=== PATIENT | female | born 1985 | race Caucasian/White ===

== ENCOUNTER 2018-05-03 04:37 | Inpatient (IN) ==
[2018-05-03 05:25] LABS: Basophils % 0.5 %; Bilirubin,Urine Negative (Negative); Blood,Urine Large (Negative); Clarity,Urine Turbid (Clear); Color,Urine Yellow (Yellow); Eosinophils # 0.3 K/mcL (0.0-0.6); Eosinophils % 3.6 %; Glucose,Urine (UA) Normal (Normal); Hematocrit 46.4 % (35.3-44.9); Hemoglobin 15.3 g/dL (11.5-15.4); Immature Granulocytes % 0.4 % (0-4); Ketones,Urine Negative (Negative); Leukocyte Esterase,Urine Trace (Negative); Lymphocytes # 2.9 K/mcL (0.6-4.6); Lymphocytes % 34.4 %; Mean Corpuscular Hemoglobin 29.5 pg (28.0-33.3); Mean Corpuscular Volume 89.6 fL (83.0-100.0); Mean Platelet Volume 10.1 fL (9.4-12.4); Monocytes # 0.6 K/mcL (0.0-1.3); Monocytes % 7.1 %; Neutrophils # 4.6 K/mcL (1.6-8.9); Nitrite,Urine Negative (Negative); Platelet Count 297 K/mcL (140-400); Protein,Urine Trace mg/dL (Neg-Trace); Red Blood Count 5.18 M/mcL (3.82-4.97); Red Cell Distribution Width 14.6 % (11.5-14.5); Specific Gravity,Urine 1.015 (1.010-1.025); Urobilinogen,Urine Normal (Normal)
[2018-05-03 05:28] LABS: Bacteria,Urine None Seen per hpf (None-Few); Hyaline Casts,Urine None Seen per lpf (None-Few); Squamous Epithelial Cell,Urine Many per lpf (None-Few)
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
[2018-05-03 05:35] LABS: Amorphous Sediment,Urine Moderate (Few)
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
[2018-05-03 05:37] LABS: RBC,Urine 15-30 per hpf (0-3)
[2018-05-03 05:46] LABS: Acetaminophen < 10 mcg/mL (10-20); Amphetamine Screen,Urine Negative ng/mL (Cutoff=1000); BUN/Creatinine Ratio 12 (6-26); Barbiturate Screen,Urine Negative ng/mL (Cutoff=200); Benzodiazepines Screen,Urine Negative ng/mL (Cutoff=200); Blood Urea Nitrogen 10 mg/dL (6-20); Calcium 9.5 mg/dL (8.6-10.3); Cannabinoid Screen,Urine Negative ng/mL (Cutoff = 50); Carbon Dioxide 25 mEq/L (23-29); Chloride 109 mEq/L (98-107); Cocaine Screen,Urine Negative ng/mL (Cutoff= 300); Ethanol < 10 mg/dL (Less than 10); Glucose 72 mg/dL (70-105); Opiate Screen,Urine Negative ng/mL (Cutoff=300); Osmolality,Calculated 286 (280-300); Phencyclidine Screen,Urine Negative ng/mL (Cutoff=25); Potassium 3.7 mEq/L (3.5-5.1); Salicylate < 2.5 mg/dL (15.0-30.0); Sodium 139 mEq/L (136-145); eGFR For Non-African Americans > 60 (> 60)
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
[2018-05-03] MEDS ORDERED: *HR* LORazepam 1 MG TABLET PO PRN (13:32)
[2018-05-03] MEDS ORDERED: Mag Hydrox/Al Hydrox/Simeth 30 ML UDC PO PRN (13:32)
[2018-05-03] MEDS ORDERED: MOM Conc 10 ML UD.LIQ PO PRN (13:32)
[2018-05-03] MEDS ORDERED: *HR* LORazepam 2 MG/ML VIAL IM PRN (13:32)
[2018-05-03] MEDS ORDERED: Haloperidol Lactate 5 MG/ML VIAL IM PRN (13:32)
[2018-05-03] MEDS: Nicotine 14 MG PATCH.TD24 TD SCH (16:46)
--- NOTE | 2018-05-03 16:50 | Psychiatry History & Physical ---
Date of Encounter: 05/03/18 Time of Encounter: 16:45 History of Present Illness Patient Stated Chief Complaint: I am suicidal, empty Medicare Admission Attestation: For traditional Medicare patients the provided hospital inpatient services are reasonable and necessary and in the case of services not specified as inpatient-only under 42 CFR 419.22 (n), that they are appropriately provided as inpatient services in accordance 42 CFR 412.3. For Critical Access Hospital the patient may reasonably be expected to be discharged or transferred to a hospital within 96 hours after admission to the Critical Access Hospital. Admitted From: Emergency Dept Plans for Post Hospital Care: Home History of Present Illness: Ms. Schaefer is a 33 year old female Chief complaint I feel empty. I have seizures History of present illness. The patient has been followed by Dr. Rasmussen. She presented today with a suicidal plan to cut or burn herself. The patient has shown me some of the cuts and khalil. The patient has reported depressive symptoms and low mood diminished interest guilt low energy poor concentration but the current stressor is working excessively. Suicidal ideation has included a variety of means to kill herself. But she says that she is not planning to kill herself on this unit. The patient was seen one week ago by Dr. Rasmussen but did not reveal how bad her depression and gotten. She is from her and he is currently in a local rehabilitation setting. The patient did not want to start any medicines she notes that she has eating disorder. The patient I discussed some of the criteria for major depression single episode as well as other disorders. Past Med Surg Social Fam HX - Past Medical History Source: patient Medical history: seizures - Past Psychiatric History Psychiatric history: Reports: panic disorder Family psychiatric history: Unknown Family History of Suicide: Unknown - Past Surgical History Surgical History: cholecystectomy, orthopedic, other - Social History Smoking Status: Current every day smoker Smokeless Tobacco Status: No Alcohol use: occasionally Drug use: none Occupational status: employed Current living situation: Home - Independent Activity Level: Independent ambulation Recent Out of Country Travel Within the Last 8 Weeks: No Exposure or Possible Exposure to Illness During Travel: No Medications & Allergies Topiramate [Topamax] 100 mg PO DAILY 11/27/17 [History] clonazePAM [Klonopin] 0.5 mg PO DAILY PRN 03/08/18 [History] Topiramate 50 mg PO DAILY 05/03/18 [History] Allergy/AdvReac Type Severity Reaction Status Date / Time Penicillins Allergy Hives Verified 05/03/18 13:51 Review of Systems Neurological: Reports: headache Psychiatric: Reports: abnormal sleep pattern, suicidal ideation, mood swings Exam - HEENT Head exam IM: Present: atraumatic Eye exam IM: Present: EOMI, normal appearance, PERRL ENT exam IM: Present: normal exam - Neurological Neurological exam: Present: CN II-XII intact - Respiratory Respiratory exam IM: Present: CTAB - GI/Abdominal GI/Abdominal exam IM: Present: normal bowel sounds, soft. Absent: tenderness - Extremities Extremities exam IM: Present: full ROM - Skin Skin exam IM: Present: dry, warm - Constitutional Vitals: Temp Pulse Resp BP Pulse Ox 97.8 F 78 16 141/97 100 05/03/18 04:42 05/03/18 04:42 05/03/18 04:42 05/03/18 04:42 05/03/18 04:42 General appearance: age & developmentally appropriate, well-groomed, well- nourished - Musculoskeletal Gait: normal Station: relaxed Strength & Tone: normal for patient - Psychiatric Patient Orientation: Yes Person, Yes Time, Yes Place Level of alertness: Alert Behavior: calm, cooperative Psychomotor activity: Normal Eye Contact: Maintains Eye Contact Mood Description: Depressed, Irritable Affect description: congruent with mood, tearful, dysphoric Speech Volume: Normal Speech pattern: normal rate, normal rhythm, normal tone, fluent, spontaneous Language & Vocabulary: consistent with education Thought Process: Linear, Goal Oriented Thought Content: Yes Suicidal ideation, No Homicidal ideation, No Overt delusions Perceptual Disturbances: No Auditory hallucinations, No Visual hallucinations Attention Span Ability: Capable of Sustained Attention Memory Description: Grossly Intact Patient Reliability: Reliable Historian Fund of knowledge: Yes abstraction ability, Yes average, Yes aware of current events Intelligence Estimate: Average Judgment: Limited Insight: Minimal Results - Drug Levels and Toxicology Drug Levels and Toxicology: Drug Levels and Toxicity 05/03/18 05/03/18 05:08 05:08 Urine Opiates Screen Negative Acetaminophen < 10 L Ur Barbiturates Screen Negative Ur Phencyclidine Scrn Negative Ur Amphetamines Screen Negative U Benzodiazepines Scrn Negative Urine Cocaine Screen Negative U Marijuana (THC) Screen Negative Ethyl Alcohol < 10 - Labs Labs: Laboratory Last Values WBC 8.5 K/mcL (4.3-11.1) 05/03/18 05:08 RBC 5.18 M/mcL (3.82-4.97) H 05/03/18 05:08 Hgb 15.3 g/dL (11.5-15.4) 05/03/18 05:08 Hct 46.4 % (35.3-44.9) H 05/03/18 05:08 MCV 89.6 fL (83.0-100.0) 05/03/18 05:08 MCH 29.5 pg (28.0-33.3) 05/03/18 05:08 MCHC 33.0 g/dL (31.6-35.5) 05/03/18 05:08 RDW 14.6 % (11.5-14.5) H 05/03/18 05:08 Plt Count 297 K/mcL (140-400) 05/03/18 05:08 MPV 10.1 fL (9.4-12.4) 05/03/18 05:08 Immature Gran % 0.4 % (0-4) 05/03/18 05:08 Seg Neutrophils % 54.0 % 05/03/18 05:08 Lymphocytes % 34.4 % 05/03/18 05:08 Monocytes % 7.1 % 05/03/18 05:08 Eosinophils % 3.6 % 05/03/18 05:08 Basophils % 0.5 % 05/03/18 05:08 Neutrophils # 4.6 K/mcL (1.6-8.9) 05/03/18 05:08 Lymphocytes # 2.9 K/mcL (0.6-4.6) 05/03/18 05:08 Monocytes # 0.6 K/mcL (0.0-1.3) 05/03/18 05:08 Eosinophils # 0.3 K/mcL (0.0-0.6) 05/03/18 05:08 Basophils # 0.0 K/mcL (0.0-0.2) 05/03/18 05:08 Sodium 139 mEq/L (136-145) 05/03/18 05:08 Potassium 3.7 mEq/L (3.5-5.1) 05/03/18 05:08 Chloride 109 mEq/L (98-107) H 05/03/18 05:08 Carbon Dioxide 25 mEq/L (23-29) 05/03/18 05:08 BUN 10 mg/dL (6-20) 05/03/18 05:08 Creatinine 0.84 mg/dL (0.60-1.20) 05/03/18 05:08 Est GFR ( Amer) > 60 (> 60) 05/03/18 05:08 Est GFR (Non-Af Amer) > 60 (> 60) 05/03/18 05:08 BUN/Creatinine Ratio 12 (6-26) 05/03/18 05:08 Glucose 72 mg/dL (70-105) 05/03/18 05:08 Calculated Osmolality 286 (280-300) 05/03/18 05:08 Calcium 9.5 mg/dL (8.6-10.3) 05/03/18 05:08 Urine Color Yellow (Yellow) 05/03/18 05:08 Urine Clarity Turbid (Clear) A 05/03/18 05:08 Urine pH 7.0 pH Units (5.0-8.0) 05/03/18 05:08 Ur Specific [facility] 1.015 (1.010-1.025) 05/03/18 05:08 Urine Protein Trace mg/dL (Neg-Trace) 05/03/18 05:08 Urine Glucose (UA) Normal mg/dL (Normal) 05/03/18 05:08 Urine Ketones Negative mg/dL (Negative) 05/03/18 05:08 Urine Blood Large (Negative) H 05/03/18 05:08 Urine Nitrite Negative (Negative) 05/03/18 05:08 Urine Bilirubin Negative (Negative) 05/03/18 05:08 Urine Urobilinogen Normal mg/dL (Normal) 05/03/18 05:08 Ur Leukocyte Esterase Trace (Negative) H 05/03/18 05:08 Urine Microscopic RBC 15-30 per hpf (0-3) H 05/03/18 05:08 Urine Microscopic WBC 5-15 per hpf (0-3) H 05/03/18 05:08 Ur Squamous Epith Cells Many per lpf (None-Few) H 05/03/18 05:08 Amorphous Sediment Moderate (Few) H 05/03/18 05:08 Urine Bacteria None Seen per hpf (None-Few) 05/03/18 05:08 Hyaline Casts None Seen per lpf (None-Few) 05/03/18 05:08 Urine Test Negative (Negative) 05/03/18 05:08 Salicylates < 2.5 mg/dL (15.0-30.0) L 05/03/18 05:08 Urine Opiates Screen Negative ng/mL (Fgakmr=811) 05/03/18 05:08 Acetaminophen < 10 mcg/mL (10-20) L 05/03/18 05:08 Ur Barbiturates Screen Negative ng/mL (Txhtqh=127) 05/03/18 05:08 Ur Phencyclidine Scrn Negative ng/mL (Cutoff=25) 05/03/18 05:08 Ur Amphetamines Screen Negative ng/mL (Jzcpgv=1053) 05/03/18 05:08 U Benzodiazepines Scrn Negative ng/mL (Uvuttn=668) 05/03/18 05:08 Urine Cocaine Screen Negative ng/mL (Cutoff= 300) 05/03/18 05:08 U Marijuana (THC) Screen Negative ng/mL (Cutoff = 50) 05/03/18 05:08 Ur Drug Screen Interp See Below 05/03/18 05:08 Ethyl Alcohol < 10 mg/dL (Less than 10) 05/03/18 05:08 Assessment and Plan (1) Major depressive disorder, recurrent severe without psychotic features Current visit: Yes Status: Acute Plan: Admit inpatient for safety and stabilization, Close observation, Suicide Precautions per unit protocol, Encourage participation in unit milieu, Monitor sleep, Secure weapons Risks, benefits, side effects, alternatives discussed w/pt: Yes Patient agreeable to treatment: Yes Plans for Post Hospital Care: Home Estimated Length of Stay (Days): 7 (2) Panic disorder without agoraphobia Current visit: Yes Status: Acute Plan: Admit inpatient for safety and stabilization, Close observation Risks, benefits, side effects, alternatives discussed w/pt: Yes Patient agreeable to treatment: Yes Plans for Post Hospital Care: Home (3) Generalized anxiety disorder Current visit: Yes Status: Acute Plan: Admit inpatient for safety and stabilization, Close observation, Encourage participation in unit milieu, Monitor sleep, Monitor appetite Risks, benefits, side effects, alternatives discussed w/pt: Yes Patient agreeable to treatment: Yes Plans for Post Hospital Care: Home (4) Suicidal ideation Current visit: Yes Status: Acute Plan: Admit inpatient for safety and stabilization, Suicide Precautions per unit protocol Risks, benefits, side effects, alternatives discussed w/pt: Yes Patient agreeable to treatment: Yes Plans for Post Hospital Care: Home
[2018-05-03] MEDS: hydrOXYzine pamoate 25 MG CAPSULE PO PRN (20:03)
[2018-05-03] MEDS: Topiramate 100 MG TABLET PO SCH (20:03)
[2018-05-03] MEDS: Ibuprofen 400 MG TABLET PO PRN (20:03)
[2018-05-03] MEDS: traZODone 50 MG TABLET PO PRN (20:03)
[2018-05-03] MEDS: clonazePAM 0.5 MG TABLET PO SCH (20:03)
[2018-05-04] MEDS: clonazePAM 0.5 MG TABLET PO SCH ×3 (09:12→20:35)
[2018-05-04] MEDS: Nicotine 14 MG PATCH.TD24 TD SCH (09:13)
[2018-05-04] MEDS: Ibuprofen 400 MG TABLET PO PRN ×3 (09:55→20:34)
--- NOTE | 2018-05-04 12:00 | Psychiatry Progress Note ---
Date of Encounter: 05/04/18 Time of Encounter: 12:00 Subjective Interval history: The patient is a 33-year-old white female. Chief complaint I am not really great more out of my site. History of present illness. The patient was able to provide additional information she had been relatively free from alcohol. After her filed for divorce and was involved in a variety of activities and she became very upset she felt empty inside and attempted to address this with alcohol burning herself with cigarettes and risk taking behaviors. The patient identifies herself as having some of the features of borderline personality disorder and is able to talk about some characters and movies that my pants. The patient had recurrent suicidal thinking. Also behavior with potential for harm. The patient is nervous about any medicine that she takes fish is afraid of weight gain. The patient's test was negative and she was told that there is a risk if she is on topiramate or clonazepam during the childbearing years. The patient is rethinking her thoughts about fertility and child planning. She has 5 children ready with the youngest being 2 years old. The patient is not wanted to go to a therapist because she has held a strong therapeutic alliance with Dr. Rasmussen. 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 She has had a seizure disorder diagnosis but is on clonazepam and topiramate which may help with this. She has had some visits to the emergency room for either panic attacks or a post ictal unusual feeling. She will go May 20 to see a neurologist for follow-up. The patient is worried about going back to work. 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 Review of Systems Neurological: Reports: confusion, other Psychiatric: Reports: abnormal sleep pattern, suicidal ideation, mood swings Results - Vital Signs Vital Signs: Temp Pulse Resp BP Pulse Ox 97.7 F 84 18 99/73 100 05/04/18 09:00 05/04/18 09:00 05/04/18 09:00 05/04/18 09:00 05/04/18 09:00 Assessment and Plan (1) Major depressive disorder, recurrent severe without psychotic features Current visit: Yes Status: Acute Plan: Continue hospitalization, Suicide Precautions per unit protocol, Group Therapy Risks, benefits, side effects, alternatives discussed w/pt: Yes Patient agreeable to treatment: Yes (2) Panic disorder without agoraphobia Current visit: Yes Status: Acute Plan: Continue hospitalization, Close observation, Suicide Precautions per unit protocol, Monitor sleep Risks, benefits, side effects, alternatives discussed w/pt: Yes Patient agreeable to treatment: Yes (3) Generalized anxiety disorder Current visit: Yes Status: Acute Plan: Continue hospitalization, Close observation, Suicide Precautions per unit protocol, Encourage participation in unit milieu, Group Therapy, Monitor sleep, Monitor appetite, Secure weapons, Family/Supportive other meeting Risks, benefits, side effects, alternatives discussed w/pt: Yes Patient agreeable to treatment: Yes (4) Suicidal ideation Current visit: Yes Status: Acute Plan: Continue hospitalization, Close observation, Suicide Precautions per unit protocol, Family/Supportive other meeting Risks, benefits, side effects, alternatives discussed w/pt: Yes Patient agreeable to treatment: Yes Consult Discharge Plan - Plan Referrals: NONE,PCP [Primary Care Provider] - Psychiatry Exam - Constitutional Vitals: Temp Pulse Resp BP Pulse Ox 97.7 F 84 18 99/73 100 05/04/18 09:00 05/04/18 09:00 05/04/18 09:00 05/04/18 09:00 05/04/18 09:00 General appearance: age & developmentally appropriate, well-groomed, thin - Musculoskeletal Gait: slow Station: relaxed Strength & Tone: normal for patient - Psychiatric Patient Orientation: Yes Person, Yes Time, Yes Place Level of alertness: Alert Behavior: calm, cooperative Psychomotor activity: Normal Eye Contact: Maintains Eye Contact Mood Description: Depressed Affect description: labile Speech Volume: Normal Speech pattern: normal rate, normal rhythm, normal tone, fluent, spontaneous Language & Vocabulary: consistent with education Thought Process: Linear, Goal Oriented Thought Content: Yes Suicidal ideation, No Homicidal ideation, No Overt delusions Perceptual Disturbances: No Auditory hallucinations, No Visual hallucinations Attention Span Ability: Capable of Sustained Attention Memory Description: Grossly Intact Patient Reliability: Reliable Historian Fund of knowledge: Yes abstraction ability, Yes aware of current events Intelligence Estimate: Average Judgment: Limited Insight: Minimal
[2018-05-04] MEDS ORDERED: Lurasidone 20 MG TABLET PO SCH (18:00)
[2018-05-04] MEDS: traZODone 50 MG TABLET PO PRN (20:34)
[2018-05-04] MEDS: hydrOXYzine pamoate 25 MG CAPSULE PO PRN (20:34)
[2018-05-04] MEDS: Topiramate 100 MG TABLET PO SCH (20:35)
[2018-05-05] MEDS: Nicotine 14 MG PATCH.TD24 TD SCH (09:28)
[2018-05-05] MEDS: clonazePAM 0.5 MG TABLET PO SCH ×2 (09:28→15:12)
[2018-05-05 09:44] VITALS: BP 114/79
[2018-05-05] MEDS: Ibuprofen 400 MG TABLET PO PRN (13:28)
--- NOTE | 2018-05-05 13:59 | Discharge Summary ---
Date of Encounter: 05/05/18 Time of Encounter: 14:00 Diagnosis - Discharge Diagnosis (1) Major depressive disorder, recurrent severe without psychotic features Priority: Primary Status: Acute (2) Panic disorder without agoraphobia Priority: Secondary Status: Acute (3) Generalized anxiety disorder Priority: Secondary Status: Acute (4) Suicidal ideation Priority: Secondary Status: Resolved Medications - Discharge Medications Prescriptions: Lurasidone [Latuda] 20 mg PO QPM 30 Days #30 tablet Topiramate [Topamax] 100 mg PO DAILY 11/27/17 [History] Topiramate 50 mg PO DAILY 05/03/18 [History] Lurasidone [Latuda] 20 mg PO QPM 30 Days #30 tablet 05/05/18 [Rx] clonazePAM [Klonopin] 0.5 mg PO TID tablet 05/05/18 [Rx] Allergy/AdvReac Type Severity Reaction Status Date / Time Penicillins Allergy Hives Verified 05/03/18 13:51 Results Procedures and tests throughout hospitalization: Completed Lab Orders Category Date Time Status Acetaminophen Stat Lab 05/03/18 05:08 Completed Basic Metabolic Panel Stat Lab 05/03/18 05:08 Completed Complete Blood Count [HEME] Stat Lab 05/03/18 05:08 Completed Drug Screen, Urine [UCHEM] Stat Lab 05/03/18 05:08 Completed Ethanol Stat Lab 05/03/18 05:08 Completed Test Result, Urine [URIN] Stat Lab 05/03/18 05:08 Completed Salicylate Stat Lab 05/03/18 05:08 Completed Urinalysis reflex Microscopic [URIN] Stat Lab 05/03/18 05:08 Completed Provider Date of admission: 05/03/18 13:29 Primary care physician: PCP NONE Discharging clinician: Raghav Ballesteros Psychiatry Exam - Constitutional Vitals: Temp Pulse Resp BP Pulse Ox 97.5 F L 88 16 114/79 99 05/05/18 09:00 05/05/18 09:00 05/05/18 09:00 05/05/18 09:00 05/05/18 09:00 General appearance: age & developmentally appropriate, well-groomed, well- nourished - Musculoskeletal Gait: normal Station: relaxed Strength & Tone: normal for patient - Psychiatric Patient Orientation: Yes Person, Yes Time, Yes Place Level of alertness: Alert Behavior: calm, cooperative Psychomotor activity: Normal Eye Contact: Maintains Eye Contact Mood Description: Anxious Affect description: congruent with mood, full range, dysphoric Speech Volume: Normal Speech pattern: normal rate, normal rhythm, normal tone, fluent, spontaneous Language & Vocabulary: consistent with education Thought Process: Linear, Goal Oriented Thought Content: No Suicidal ideation, No Homicidal ideation, No Overt delusions Perceptual Disturbances: No Auditory hallucinations, No Visual hallucinations Attention Span Ability: Capable of Focused Attention Memory Description: Grossly Intact Patient Reliability: Reliable Historian Fund of knowledge: Yes abstraction ability, Yes aware of current events Intelligence Estimate: Average Judgment: Good Insight: Full Hospital Course Hospital course: Ms. Schaefer is a 33 year old female Chief complaint I am not suicidal now. History of present illness. The patient had developed a significant depressive episode. This was associated with multiple stressors. The patient had a history of panic and anxiety and had been treated with clonazepam. After admission the patient's clonazepam was increased to 0.5 mg 3 times a day. The patient's drug screen was negative and while she had a history of alcohol use she did not meet criteria for alcohol abuse. Nonetheless the patient had depressive symptoms and had been in outpatient treatment. The patient also admitted to some anxiety symptoms associated with major depression as well as some personality traits and some features of milagros. These involved impulsivity and risk-taking behaviors. The patient agreed to a trial of the medicine Latuda. She tolerated 20 mg in the evening with food. The patient developed a behavioral plan and agreed that counseling would be h elpful for her ongoing treatment. Communication with her outpatient psychiatrist occurred throughout the hospital stay. Patient was able to discuss her diagnosis and treatment and the need to avoid alcohol and drugs of abuse. He was educated on side effects. She was educated on drug drug interactions. The patient verbalized understanding. At the time of discharge the patient felt that she would be able to return to work in the next week. She was able to identify risk factors of worsening depression and suicidal ideation. She was able to schedule the need for ongoing treatment. She reported that she did not have suicidal ideation at the time discharge. She still reported feeling numb and empty regarding some events. Time spent discussing smoking cessation with patient: 3 to 10 minutes Does patient wish to continue nicotine replacement upon disc: No - Time Spent with Patient Total time spent providing and/or coordinating discharge services: Greater than 30 minutes Assessment and Plan - Patient/Caregiver Discharge Instructions Activity: resume usual activities as tolerated, return to work Diet: regular diet - Follow up Plan Follow up with: [facility] [Outside] - 05/19/18 8:10 am (The above appointment is with Dr. Rasmussen for outpatient psychiatric assessment and medication management services. You will also see Monika Tejada for outpatient mental health counseling services on 06/15/2018 at 10:00am. The above appointments reflect first availability. You may contact the office regularly to check for cancellations that may allow you to be seen sooner.) Functional capacity at discharge: independent ambulation Overall status at discharge: Stable Disposition: Home, Self-Care Quality - Multiple Antipsychotics Patient discharged on 2 or more antipsychotic medications: No Procedures - Procedures Procedures: Medication Management, Crisis Stabilization, Supportive Therapy, Group Therapy, Psychoeducational Therapy
== END 2018-05-05 14:07 | disposition home or self-care (01) | DRG 751 ==
LOC: EMEROOARM 04:37 → 1ANU 13:29
PROVIDERS: ADMIT Psychiatry & Neurology Forensic Psychiatry; ATTEND Psychiatry & Neurology Forensic Psychiatry

== ENCOUNTER 2019-04-06 13:26 | Observation (INO) ==
[2019-04-06 14:35] LABS: Bilirubin,Urine Negative (Negative); Blood,Urine Negative (Negative); Clarity,Urine Turbid (Clear); Color,Urine Yellow (Yellow); Glucose,Urine (UA) Normal (Normal); Ketones,Urine Negative (Negative); Leukocyte Esterase,Urine Small (Negative); Nitrite,Urine Negative (Negative); PH,Urine 7.5 pH Units (5.0-8.0); Protein,Urine Negative (Neg-Trace); Specific Gravity,Urine 1.017 (1.010-1.025); Urobilinogen,Urine Normal (Normal)
[2019-04-06 14:37] LABS: Bacteria,Urine Many per hpf (None-Few); Hyaline Casts,Urine None Seen per lpf (None-Few)
[2019-04-06 14:48] LABS: Basophils % 0.4 %; Eosinophils # 0.1 K/mcL (0.0-0.6); Eosinophils % 1.7 %; Hematocrit 34.8 % (35.3-44.9); Hemoglobin 11.8 g/dL (11.5-15.4); Immature Granulocytes % 1.8 % (0-4); Lymphocytes # 1.7 K/mcL (0.6-4.6); Mean Corpuscular HGB Conc 33.9 g/dL (31.6-35.5); Mean Corpuscular Hemoglobin 30.7 pg (28.0-33.3); Mean Corpuscular Volume 90.6 fL (83.0-100.0); Mean Platelet Volume 9.8 fL (9.4-12.4); Monocytes # 0.7 K/mcL (0.0-1.3); Neutrophils # 5.6 K/mcL (1.6-8.9); Platelet Count 326 K/mcL (140-400); Red Blood Count 3.84 M/mcL (3.82-4.97); Red Cell Distribution Width 13.4 % (11.5-14.5); Segmented Neutrophils % 68.1 %; White Blood Count 8.3 K/mcL (4.3-11.1)
[2019-04-06 14:49] LABS: Squamous Epithelial Cell,Urine Moderate per lpf (None-Few)
[2019-04-06 14:50] LABS: Amorphous Sediment,Urine Moderate (Few); RBC,Urine 0-3 per hpf (0-3)
[2019-04-06 15:02] LABS: Amphetamine Screen,Urine Negative ng/mL (Cutoff=1000); Barbiturate Screen,Urine Negative ng/mL (Cutoff=200); Benzodiazepines Screen,Urine Negative ng/mL (Cutoff=200); Cannabinoid Screen,Urine Negative ng/mL (Cutoff = 50); Cocaine Screen,Urine Negative ng/mL (Cutoff= 300); Opiate Screen,Urine Negative ng/mL (Cutoff=300); Phencyclidine Screen,Urine Negative ng/mL (Cutoff=25)
[2019-04-06 15:25] LABS: Acetaminophen < 10 mcg/mL (10-20); BUN/Creatinine Ratio 12 (6-26); Blood Urea Nitrogen 7 mg/dL (6-20); Calcium 9.3 mg/dL (8.6-10.3); Carbon Dioxide 25 mEq/L (23-29); Chloride 103 mEq/L (98-107); Chol/HDL Ratio 3.7 (0-4.9); Cholesterol 218 mg/dL (< 200); Ethanol < 10 mg/dL (Less than 10); Glucose 80 mg/dL (70-105); HDL Cholesterol 59 mg/dL (40-59); LDL Cholesterol,Calculated 122 mg/dL (0-99); Osmolality,Calculated 275 (280-300); Potassium 3.9 mEq/L (3.5-5.1); Salicylate < 2.5 mg/dL (15.0-30.0); Sodium 134 mEq/L (136-145); Triglycerides 186 mg/dL (< 150); eGFR For African Americans > 60 (> 60); eGFR For Non-African Americans > 60 (> 60)
[2019-04-06 16:03] LABS: Estimated Average Glucose 105 mg/dl
[2019-04-06] MEDS ORDERED: *HR* LORazepam 1 MG TABLET PO PRN (17:32)
[2019-04-06] MEDS ORDERED: Haloperidol Lactate 5 MG/ML VIAL IM PRN (17:32)
[2019-04-06] MEDS ORDERED: Acetaminophen 325 MG TABLET PO PRN (17:32)
[2019-04-06] MEDS ORDERED: Mag Hydrox/Al Hydrox/Simeth 30 ML UDC PO PRN (17:32)
[2019-04-06] MEDS ORDERED: *HR* LORazepam 2 MG/ML VIAL IM PRN (17:32)
[2019-04-06] MEDS ORDERED: traZODone 50 MG TABLET PO PRN (17:32)
[2019-04-06] MEDS ORDERED: MOM Conc 10 ML UD.LIQ PO PRN (17:32)
[2019-04-06] MEDS: hydrOXYzine pamoate 25 MG CAPSULE PO PRN (21:46)
[2019-04-07] MEDS: Prenatal Vit/FA 1 EACH TABLET PO SCH (09:04)
[2019-04-07 16:05] LABS: Bilirubin,Urine Negative (Negative); Blood,Urine Negative (Negative); Clarity,Urine Cloudy (Clear); Color,Urine Yellow (Yellow); Glucose,Urine (UA) Normal (Normal); Ketones,Urine Negative (Negative); Leukocyte Esterase,Urine Negative (Negative); Nitrite,Urine Negative (Negative); PH,Urine 6.5 pH Units (5.0-8.0); Protein,Urine Negative (Neg-Trace); Urobilinogen,Urine Normal (Normal)
[2019-04-07 16:07] LABS: Bacteria,Urine None Seen per hpf (None-Few); Hyaline Casts,Urine None Seen per lpf (None-Few); Squamous Epithelial Cell,Urine Many per lpf (None-Few); WBC,Urine 0-3 per hpf (0-3)
[2019-04-07] MEDS ORDERED: lamoTRIgine 25 MG TABLET PO SCH (21:00)
[2019-04-07] MEDS: hydrOXYzine pamoate 25 MG CAPSULE PO PRN (21:30)
[2019-04-08] MEDS: Prenatal Vit/FA 1 EACH TABLET PO SCH (09:18)
[2019-04-08 09:53] VITALS: BP 115/74
[2019-04-08] MEDS ORDERED: lamoTRIgine 25 MG TABLET PO SCH (21:00)
== END 2019-04-08 11:10 | disposition home or self-care (01) ==
LOC: EMEROOARM 13:26 → 1ANU 17:04 → INTOOBSV 17:04 → 1ANU 17:19
PROVIDERS: ADMIT Psychiatry & Neurology Psychiatry; ATTEND Psychiatry & Neurology Psychiatry

== ENCOUNTER → 2019-07-31 19:17 | Observation (INO) | END | disposition home or self-care (01) | LOC: 1NENULAB | PROVIDERS: ADMIT Advanced Practice Midwife; ATTEND Advanced Practice Midwife ==

== ENCOUNTER → 2019-08-08 18:59 | Observation (INO) ==
[2019-08-08 17:30] LABS: Bilirubin,Urine Negative (Negative); Blood,Urine Negative (Negative); Clarity,Urine Cloudy (Clear); Color,Urine Yellow (Yellow); Glucose,Urine (UA) Normal (Normal); Ketones,Urine Trace mg/dL (Negative); Leukocyte Esterase,Urine Large (Negative); Nitrite,Urine Negative (Negative); Protein,Urine Negative (Neg-Trace); Specific Gravity,Urine 1.018 (1.010-1.025); Urobilinogen,Urine Normal (Normal)
[2019-08-08 17:32] LABS: Bacteria,Urine Moderate per hpf (None-Few); Hyaline Casts,Urine Few per lpf (None-Few); Squamous Epithelial Cell,Urine Many per lpf (None-Few); WBC,Urine 15-30 per hpf (0-3)
[2019-08-08 17:45] LABS: RBC,Urine 0-3 per hpf (0-3)
[2019-08-08 18:04] LABS: Basophils % 0.4 %; Eosinophils # 0.1 K/mcL (0.0-0.6); Eosinophils % 1.1 %; Hemoglobin 11.9 g/dL (11.5-15.4); Immature Granulocytes % 2.5 % (0-4); Lymphocytes # 1.9 K/mcL (0.6-4.6); Lymphocytes % 18.3 %; Mean Corpuscular HGB Conc 32.2 g/dL (31.6-35.5); Mean Corpuscular Hemoglobin 28.5 pg (28.0-33.3); Mean Corpuscular Volume 88.5 fL (83.0-100.0); Mean Platelet Volume 10.4 fL (9.4-12.4); Monocytes # 0.6 K/mcL (0.0-1.3); Monocytes % 5.7 %; Neutrophils # 7.3 K/mcL (1.6-8.9); Platelet Count 339 K/mcL (140-400); Red Blood Count 4.18 M/mcL (3.82-4.97); Red Cell Distribution Width 14.5 % (11.5-14.5); White Blood Count 10.2 K/mcL (4.3-11.1)
[2019-08-08 18:04] LABS: Protein/Creatinine Ratio,Urine 0.16 mg/mg (0.00-0.20)
[2019-08-08 18:14] LABS: Alanine Aminotransferase 13 Units/L (7-52); Aspartate Amino Transferase 22 Units/L (13-39); BUN/Creatinine Ratio 7 (6-26); Blood Urea Nitrogen 4 mg/dL (6-20); Lactate Dehydrogenase 128 Units/L (140-271); Uric Acid 5.9 mg/dL (2.3-7.6); eGFR For African Americans > 60 (> 60); eGFR For Non-African Americans > 60 (> 60)
== END | disposition home or self-care (01) ==
LOC: 1NENULAB
PROVIDERS: ADMIT Advanced Practice Midwife; ATTEND Advanced Practice Midwife

== ENCOUNTER 2019-08-21 21:00 | Inpatient (IN) ==
[2019-08-21 16:35] LABS: Basophils % 0.4 %; Eosinophils # 0.1 K/mcL (0.0-0.6); Hematocrit 41.2 % (35.3-44.9); Hemoglobin 13.2 g/dL (11.5-15.4); Immature Granulocytes % 2.3 % (0-4); Lymphocytes # 1.7 K/mcL (0.6-4.6); Lymphocytes % 18.2 %; Mean Corpuscular Hemoglobin 28.6 pg (28.0-33.3); Mean Corpuscular Volume 89.4 fL (83.0-100.0); Mean Platelet Volume 10.4 fL (9.4-12.4); Monocytes # 0.6 K/mcL (0.0-1.3); Monocytes % 5.9 %; Neutrophils # 6.8 K/mcL (1.6-8.9); Platelet Count 328 K/mcL (140-400); Red Blood Count 4.61 M/mcL (3.82-4.97); Red Cell Distribution Width 15.2 % (11.5-14.5); Segmented Neutrophils % 72.2 %; White Blood Count 9.5 K/mcL (4.3-11.1)
[2019-08-21 16:42] LABS: Protein/Creatinine Ratio,Urine 0.13 mg/mg (0.00-0.20)
[2019-08-21 16:51] LABS: Alanine Aminotransferase 17 Units/L (7-52); Aspartate Amino Transferase 26 Units/L (13-39); BUN/Creatinine Ratio 10 (6-26); Blood Urea Nitrogen 6 mg/dL (6-20); Lactate Dehydrogenase 154 Units/L (140-271); Uric Acid 5.7 mg/dL (2.3-7.6); eGFR For African Americans > 60 (> 60); eGFR For Non-African Americans > 60 (> 60)
[~2019-08-21 21:00] MED LIST: *HR* FentaNYL (PF) 100 MCG/2 ML VIAL IVP PRN; Famotidine 20 MG/2 ML VIAL IVP PRN; Metoclopramide 10 MG/2 ML VIAL IVP PRN; Naloxone 0.4 MG/ML INJ IVP PRN; Ondansetron 4 MG/2 ML VIAL IVP PRN; Ringers Solution, Lactated 1,000 ML IVC SCH
[2019-08-21] MEDS ORDERED: Clindamycin 900 MG/50 ML 900 MG/50 ML IV.SOLN IVPB SCH (21:09)
[2019-08-21 22:02] LABS: Amphetamine Screen,Urine Negative ng/mL (Cutoff=1000); Barbiturate Screen,Urine Negative ng/mL (Cutoff=200); Benzodiazepines Screen,Urine Negative ng/mL (Cutoff=200); Cannabinoid Screen,Urine Negative ng/mL (Cutoff = 50); Cocaine Screen,Urine Negative ng/mL (Cutoff= 300); Opiate Screen,Urine Negative ng/mL (Cutoff=300); Phencyclidine Screen,Urine Negative ng/mL (Cutoff=25)
[2019-08-21] MEDS: Oxytocin 20 units/ LR 1000 mL 20 UNIT/1,000 ML BAG IVC SCH (22:22)
[2019-08-21] MEDS ORDERED: Bupivacaine-MPF 0.25% 10 ML VIAL EP ONE (23:24)
[2019-08-21] MEDS ORDERED: *HR* FentaNYL (PF) 100 MCG/2 ML VIAL EP ONE (23:24)
[2019-08-21] MEDS ORDERED: EPHEDrine 50 MG/ML VIAL IVP PRN (23:24)
[2019-08-21] MEDS ORDERED: Epidural Premix (fent/bupiv) 110 ML EP SCH (23:30)
[2019-08-21] MEDS ORDERED: Bupivacaine-MPF 0.25% 10 ML VIAL ONE (23:50)
[2019-08-21] MEDS ORDERED: *HR* FentaNYL (PF) 100 MCG/2 ML VIAL ONE (23:50)
[2019-08-22] MEDS ORDERED: Lidocaine 1% 20 ML MDV ONE (02:44)
[2019-08-22] MEDS: Oxytocin 20 units/ LR 1000 mL 20 UNIT/1,000 ML BAG IVC SCH (04:09)
[2019-08-22] MEDS ORDERED: Benzocaine/Menthol 56 GM AEROSOL SPRAY TP PRN (04:16)
[2019-08-22] MEDS ORDERED: Lanolin 7 G OINT...G. TP PRN (04:16)
[2019-08-22] MEDS ORDERED: Oxytocin 20 units/ LR 1000 mL 20 UNIT/1,000 ML BAG IVC SCH (04:16)
[2019-08-22] MEDS: Acetaminophen 325 MG TABLET PO PRN ×2 (04:48→15:55)
[2019-08-22] MEDS: Prenatal Vit/FA 1 EACH TABLET PO SCH (08:04)
[2019-08-22] MEDS: Ibuprofen 600 MG TABLET PO PRN ×2 (10:54→21:27)
[2019-08-22] MEDS: *HR* LORazepam 0.5 MG TABLET PO PRN ×2 (17:36→21:28)
[2019-08-22] MEDS: lamoTRIgine 25 MG TABLET PO SCH (21:28)
[2019-08-23] MEDS: Acetaminophen 325 MG TABLET PO PRN ×2 (01:10→08:29)
[2019-08-23] MEDS: Prenatal Vit/FA 1 EACH TABLET PO SCH (08:28)
[2019-08-23] MEDS: *HR* LORazepam 0.5 MG TABLET PO PRN ×2 (08:58→13:31)
[2019-08-23] MEDS: Ibuprofen 600 MG TABLET PO PRN ×2 (13:31→20:32)
[2019-08-23] MEDS: lamoTRIgine 25 MG TABLET PO SCH (21:51)
[2019-08-24] MEDS: Ibuprofen 600 MG TABLET PO PRN ×2 (06:51→17:45)
[2019-08-24] MEDS: Prenatal Vit/FA 1 EACH TABLET PO SCH (08:34)
[2019-08-24] MEDS: *HR* LORazepam 0.5 MG TABLET PO PRN ×2 (08:35→22:36)
[2019-08-24] MEDS: Topiramate 25 MG CAP.SPRINK PO SCH (12:27)
[2019-08-25] MEDS: Acetaminophen 325 MG TABLET PO PRN ×2 (01:06→12:45)
[2019-08-25] MEDS: Ibuprofen 600 MG TABLET PO PRN (08:01)
[2019-08-25] MEDS: Prenatal Vit/FA 1 EACH TABLET PO SCH (08:34)
[2019-08-25] MEDS: *HR* LORazepam 0.5 MG TABLET PO PRN (08:34)
[2019-08-25] MEDS: Topiramate 25 MG CAP.SPRINK PO SCH (08:34)
[2019-08-25 09:25] VITALS: BP 132/83
== END 2019-08-25 13:40 | disposition home or self-care (01) | DRG 560 ==
LOC: 1NENULAB → 1NENUOBS 08-22 05:44
PROVIDERS: ADMIT Registered Nurse; ATTEND Registered Nurse

== ENCOUNTER 2019-09-02 00:50 | Inpatient (IN) ==
[2019-09-02 01:33] LABS: Basophils % 0.5 %; Eosinophils # 0.1 K/mcL (0.0-0.6); Eosinophils % 1.4 %; Hematocrit 43.5 % (35.3-44.9); Hemoglobin 14.4 g/dL (11.5-15.4); Immature Granulocytes % 0.5 % (0-4); Lymphocytes # 2.4 K/mcL (0.6-4.6); Lymphocytes % 27.2 %; Mean Corpuscular HGB Conc 33.1 g/dL (31.6-35.5); Mean Corpuscular Volume 87.7 fL (83.0-100.0); Monocytes # 0.5 K/mcL (0.0-1.3); Monocytes % 6.2 %; Neutrophils # 5.6 K/mcL (1.6-8.9); Platelet Count 435 K/mcL (140-400); Red Blood Count 4.96 M/mcL (3.82-4.97); Red Cell Distribution Width 14.7 % (11.5-14.5); Segmented Neutrophils % 64.2 %; White Blood Count 8.7 K/mcL (4.3-11.1)
[2019-09-02 01:53] LABS: Acetaminophen < 10 mcg/mL (10-20); BUN/Creatinine Ratio 15 (6-26); Blood Urea Nitrogen 12 mg/dL (6-20); Calcium 9.6 mg/dL (8.6-10.3); Carbon Dioxide 19 mEq/L (23-29); Chloride 106 mEq/L (98-107); Ethanol < 10 mg/dL (Less than 10); Glucose 106 mg/dL (70-105); Osmolality,Calculated 280 (280-300); Potassium 3.6 mEq/L (3.5-5.1); Salicylate < 2.5 mg/dL (15.0-30.0); Sodium 135 mEq/L (136-145); eGFR For African Americans > 60 (> 60); eGFR For Non-African Americans > 60 (> 60)
[2019-09-02 02:22] LABS: Bilirubin,Urine Negative (Negative); Blood,Urine Moderate (Negative); Clarity,Urine Clear (Clear); Color,Urine Yellow (Yellow); Glucose,Urine (UA) Normal (Normal); Ketones,Urine Negative (Negative); Leukocyte Esterase,Urine Moderate (Negative); Nitrite,Urine Negative (Negative); Protein,Urine Negative (Neg-Trace); Specific Gravity,Urine 1.022 (1.010-1.025); Urobilinogen,Urine Normal (Normal)
[2019-09-02 02:23] LABS: Bacteria,Urine None Seen per hpf (None-Few); Hyaline Casts,Urine None Seen per lpf (None-Few); Squamous Epithelial Cell,Urine Many per lpf (None-Few)
[2019-09-02 02:27] LABS: Amphetamine Screen,Urine Negative ng/mL (Cutoff=1000); Barbiturate Screen,Urine Negative ng/mL (Cutoff=200); Benzodiazepines Screen,Urine Negative ng/mL (Cutoff=200); Cannabinoid Screen,Urine Negative ng/mL (Cutoff = 50); Cocaine Screen,Urine Negative ng/mL (Cutoff= 300); Opiate Screen,Urine Negative ng/mL (Cutoff=300); Phencyclidine Screen,Urine Negative ng/mL (Cutoff=25)
[2019-09-02] MEDS ORDERED: *HR* LORazepam 1 MG TABLET PO ONE (02:53)
[2019-09-02] MEDS ORDERED: traZODone 50 MG TABLET PO PRN (06:28)
[2019-09-02] MEDS ORDERED: *HR* LORazepam 2 MG/ML VIAL IM PRN (06:28)
[2019-09-02] MEDS ORDERED: Mag Hydrox/Al Hydrox/Simeth 30 ML UDC PO PRN (06:28)
[2019-09-02] MEDS ORDERED: haloperidoL 5 MG TABLET PO PRN (06:28)
[2019-09-02] MEDS ORDERED: Haloperidol Lactate 5 MG/ML VIAL IM PRN (06:28)
[2019-09-02] MEDS ORDERED: Acetaminophen 325 MG TABLET PO PRN (06:28)
[2019-09-02] MEDS ORDERED: MOM Conc 10 ML UD.LIQ PO PRN (06:28)
[2019-09-02] MEDS ORDERED: *HR* LORazepam 1 MG TABLET PO PRN (06:28)
[2019-09-02] MEDS ORDERED: clonazePAM 0.5 MG TABLET ONE (13:42)
[2019-09-02] MEDS ORDERED: Topiramate 100 MG TABLET PO PRN (16:06)
[2019-09-02] MEDS: hydrOXYzine pamoate 25 MG CAPSULE PO PRN (18:13)
[2019-09-02] MEDS: traZODone 50 MG TABLET PO SCH (21:37)
[2019-09-02] MEDS: clonazePAM 0.5 MG TABLET PO PRN (21:37)
[2019-09-03] MEDS: hydrOXYzine pamoate 25 MG CAPSULE PO PRN (10:22)
[2019-09-03] MEDS: clonazePAM 0.5 MG TABLET PO PRN (10:22)
[2019-09-03] MEDS: clonazePAM 1 MG TABLET PO SCH ×2 (15:11→20:52)
[2019-09-03] MEDS: Nitrofurantoin (BID) 100 MG CAPSULE PO SCH (18:34)
[2019-09-03] MEDS: traZODone 50 MG TABLET PO SCH (20:52)
[2019-09-04] MEDS: clonazePAM 1 MG TABLET PO SCH ×3 (08:55→20:31)
[2019-09-04] MEDS: Nitrofurantoin (BID) 100 MG CAPSULE PO SCH ×2 (08:55→16:45)
[2019-09-04] MEDS: hydrOXYzine pamoate 25 MG CAPSULE PO PRN (12:50)
[2019-09-04] MEDS: traZODone 50 MG TABLET PO SCH (20:31)
[2019-09-05] MEDS: clonazePAM 0.5 MG TABLET PO PRN (03:06)
[2019-09-05] MEDS: Nitrofurantoin (BID) 100 MG CAPSULE PO SCH ×2 (08:50→17:37)
[2019-09-05] MEDS: clonazePAM 1 MG TABLET PO SCH ×3 (08:50→20:10)
[2019-09-05] MEDS: hydrOXYzine pamoate 25 MG CAPSULE PO PRN (13:21)
[2019-09-05] MEDS: ARIPiprazole 5 MG TABLET PO SCH (20:12)
[2019-09-06] MEDS: traZODone 50 MG TABLET PO SCH ×2 (00:19→20:32)
[2019-09-06] MEDS: clonazePAM 1 MG TABLET PO SCH ×3 (08:34→20:32)
[2019-09-06] MEDS: Nitrofurantoin (BID) 100 MG CAPSULE PO SCH (08:34)
[2019-09-06] MEDS: Ibuprofen 400 MG TABLET PO PRN ×2 (08:34→21:49)
[2019-09-06] MEDS: ARIPiprazole 5 MG TABLET PO SCH (20:32)
[2019-09-07] MEDS: clonazePAM 1 MG TABLET PO SCH ×3 (09:04→20:11)
[2019-09-07] MEDS: Ibuprofen 400 MG TABLET PO PRN (11:24)
[2019-09-07] MEDS: hydrOXYzine pamoate 25 MG CAPSULE PO PRN (13:01)
[2019-09-07] MEDS: ARIPiprazole 5 MG TABLET PO SCH (20:11)
[2019-09-07] MEDS: traZODone 50 MG TABLET PO SCH (20:11)
[2019-09-07] MEDS ORDERED: Topiramate 100 MG TABLET PO SCH (21:00)
[2019-09-08] MEDS: clonazePAM 1 MG TABLET PO SCH (09:26)
[2019-09-08 09:40] VITALS: BP 110/74
[2019-09-08] MEDS: hydrOXYzine pamoate 25 MG CAPSULE PO PRN (10:12)
== END 2019-09-08 11:40 | disposition home or self-care (01) | DRG 757 ==
LOC: 1ANU 00:50 → EMEROOARM 00:50 → SUATTDRO 06:22 → 1ANU 06:30
PROVIDERS: ADMIT Psychiatry & Neurology Psychiatry; ATTEND Psychiatry & Neurology Forensic Psychiatry